=== PATIENT | male | born 1980 | race Caucasian/White ===

== ENCOUNTER → 2017-04-03 | Outpatient (CLI) | payer BC ==
--- NOTE | 2017-04-04 02:43 | REP ---
Clinical: Chest pain . Comparison: None . Technique: PA and lateral. Findings: The mediastinum and cardiac silhouette are normal. The lung banda are clear and without acute consolidation, effusion, or pneumothorax. The skeletal structures are intact and normal. Impression: 1. No acute cardiopulmonary process. Signed by Deepak Saunders MD 04/04/2017 02:35 A
== END ==
LOC: M CLY 14:44
PROVIDERS: ATTEND Family Medicine
DX: R07.9 Chest pain, unspecified (principal)

== ENCOUNTER → 2018-10-21 | Outpatient (CLI) | payer BC | LOC: M SMT 14:41 | DX: R06.02 Shortness of breath (principal) | CPT/HCPCS: 71046 ==

== ENCOUNTER → 2019-12-28 | Outpatient (CLI) | payer BC ==
[2019-12-28 20:40] LABS: ALBUMIN 4.2 GM/DL (3.2-5.2); ALT/SGPT 34 U/L (12-78); AMYLASE 74 U/L (25-115); BILIRUBIN,TOTAL 0.3 MG/DL (0.2-1.0); BLOOD UREA NITROGEN 13 MG/DL (7-18); CALCIUM LEVEL 9.2 MG/DL (8.5-10.1); CARBON DIOXIDE LEVEL 29 MEQ/L (21-32); CHLORIDE LEVEL 103 MEQ/L (98-107); GLOMERULAR FILTRATION RATE > 60.0 (>60); GLUCOSE, FASTING 99 MG/DL (70-100); LIPASE 136 U/L (73-393); POTASSIUM SERUM 4.3 MEQ/L (3.5-5.1); SODIUM LEVEL 138 MEQ/L (136-145); TOTAL PROTEIN 7.4 GM/DL (6.4-8.2)
[2019-12-28 20:48] LABS: BASO # 0.1 10^3/uL (0.0-0.2); BASO % 0.5 % (0.0-1.0); EOS # 0.5 10^3/uL (0.0-0.5); EOS % 5.4 % (0.0-3.0); HEMATOCRIT 45.6 % (42.0-52.0); HEMOGLOBIN 14.7 g/dl (13.5-17.5); LYMPH # 3.4 10^3/uL (1.5-5.0); LYMPH % 34.9 % (24.0-44.0); MEAN CORPUSCULAR HEMOGLOBIN 29.4 pg (27.0-33.0); MEAN CORPUSCULAR HGB CONC 32.2 g/dl (32.0-36.5); MEAN CORPUSCULAR VOLUME 91.2 fl (80.0-96.0); MONO # 1.1 10^3/uL (0.0-0.8); NEUTROPHILS # 4.7 10^3/uL (1.5-8.5); NEUTROPHILS % 47.8 % (36.0-66.0); PLATELET COUNT, AUTOMATED 319 10^3/uL (150-450); WHITE BLOOD COUNT 9.8 10^3/uL (4.0-10.0)
--- NOTE | 2019-12-29 02:16 | REP ---
Clinical: Left lower quadrant abdominal pain. Technique: Upright view of the chest with supine and upright views of the abdomen and pelvis. Findings: Frontal upright view of the chest demonstrates no acute cardiopulmonary process or free air below the diaphragm to suspect pneumoperitoneum. Supine and upright views of the abdomen and pelvis demonstrate nonspecific bowel gas pattern without obstruction or perforation. No organomegaly. No abnormal calcifications. Skeletal structures normal for age. Impression: Nonspecific bowel gas pattern. Electronically Signed by Deepak Saunders MD 12/29/2019 02:08 A
== END ==
LOC: M WUC 17:06
PROVIDERS: ATTEND Physician Assistant
DX: R10.814 Left lower quadrant abdominal tenderness (principal)

== ENCOUNTER 2025-08-03 14:29 | Emergency (ER) | payer BC ==
[~2025-08-03] VITALS: Ht 189.2 cm; Wt 115.9 kg
[2025-08-03 15:17] LABS: BASO # 0.1 10^3/uL (0.0-0.2); BASO % 0.7 % (0.0-1.0); EOS # 0.3 10^3/uL (0.0-0.5); EOS % 3.5 % (0.0-3.0); LYMPH # 1.7 10^3/uL (1.5-5.0); LYMPH % 20.3 % (24.0-44.0); MONO # 0.8 10^3/uL (0.0-0.8); MONO % 9.6 % (2.0-8.0); NEUTROPHILS # 5.4 10^3/uL (1.5-8.5); NEUTROPHILS % 65.7 % (36.0-66.0); PLATELET COUNT, AUTOMATED 272 10^3/uL (150-450)
[2025-08-03 15:24] LABS: CPK CREATINE PHOSPHOKINASE 59 U/L (46-171)
[2025-08-03 15:25] LABS: ALT/SGPT 26 U/L (7.0-40); AST/SGOT 16 U/L (<34); CALCIUM LEVEL 9.4 MG/DL (8.5-10.1); CARBON DIOXIDE LEVEL 28 MMOL/L (20-31); CHLORIDE LEVEL 104 MMOL/L (98-107); CK-MB VALUE MASS 1.0 NG/ML (<3.6); CREATININE FOR GFR 0.97 MG/DL (0.70-1.30); GLOMERULAR FILTRATION RATE > 90.0 (>60); MB/CK RELATIVE INDEX 1.69 (< OR =4); POTASSIUM SERUM 4.1 MMOL/L (3.5-5.1); SODIUM LEVEL 141 MMOL/L (136-145)
[2025-08-03] MEDS: SUCRALFATE SUSP 1GM/10ML UD PO ONE (16:03)
[2025-08-03 16:29] LABS: CK-MB VALUE MASS 1.0 NG/ML (<3.6)
[2025-08-03 16:30] LABS: CPK CREATINE PHOSPHOKINASE 61 U/L (46-171); MB/CK RELATIVE INDEX 1.63 (< OR =4)
[2025-08-03] MEDS ORDERED: CARA1TAB6 PO (17:28)
[2025-08-03 17:48] VITALS: BP 135/77; O2SAT 97
[2025-08-03 17:51] VITALS: TEMP 98.3
== END 2025-08-03 18:04 | disposition home or self-care (01) ==
LOC: EDBD 14:29 → M ED 15:52
DX: R10.13 Epigastric pain (principal); I10 Essential (primary) hypertension; K21.9 Gastro-esophageal reflux disease without esophagitis

== ENCOUNTER 2025-08-19 21:00 | Emergency (ER) | payer OTHER, BC ==
[~2025-08-19] VITALS: Ht 188 cm; Wt 113.5 kg
[~2025-08-19 21:00] MED LIST: CARA1TAB6 PO
[2025-08-19 21:43] LABS: BASO # 0.0 10^3/uL (0.0-0.2); BASO % 0.5 % (0.0-1.0); EOS # 0.4 10^3/uL (0.0-0.5); EOS % 4.1 % (0.0-3.0); LYMPH # 2.3 10^3/uL (1.5-5.0); LYMPH % 26.4 % (24.0-44.0); MONO # 1.0 10^3/uL (0.0-0.8); MONO % 11.7 % (2.0-8.0); NEUTROPHILS # 5.0 10^3/uL (1.5-8.5); NEUTROPHILS % 57.1 % (36.0-66.0); PLATELET COUNT, AUTOMATED 293 10^3/uL (150-450)
[2025-08-19 22:02] LABS: CK-MB VALUE MASS 1.2 NG/ML (<3.6)
[2025-08-19 22:05] LABS: ALT/SGPT 24 U/L (7.0-40); AST/SGOT 16 U/L (<34); CALCIUM LEVEL 8.9 MG/DL (8.5-10.1); CARBON DIOXIDE LEVEL 28 MMOL/L (20-31); CHLORIDE LEVEL 105 MMOL/L (98-107); CREATININE FOR GFR 0.89 MG/DL (0.70-1.30); GLOMERULAR FILTRATION RATE > 90.0 (>60); POTASSIUM SERUM 3.9 MMOL/L (3.5-5.1); SODIUM LEVEL 139 MMOL/L (136-145)
[2025-08-19 22:08] LABS: CPK CREATINE PHOSPHOKINASE 80 U/L (46-171); MB/CK RELATIVE INDEX 1.50 (< OR =4)
[2025-08-19] MEDS ORDERED: ISOVUE-370 76% 100 ML VIAL As Ordered ONE (22:53)
[2025-08-19 23:45] LABS: CK-MB VALUE MASS 1.3 NG/ML (<3.6); MAGNESIUM LEVEL 1.8 MG/DL (1.8-2.4)
[2025-08-19 23:52] LABS: CPK CREATINE PHOSPHOKINASE 78.0 U/L (46-171); MB/CK RELATIVE INDEX 1.66 (< OR =4)
[2025-08-20] MEDS ORDERED: ATIV1TAB10 PO (02:34)
[2025-08-20] MEDS: TAMSULOSIN 0.4 MG CAP PO ONE (02:58)
[2025-08-20 03:00] VITALS: BP 128/74; TEMP 97.9; O2SAT 97
== END 2025-08-20 03:05 | disposition home or self-care (01) ==
LOC: M ED 21:00
DX: F41.0 Panic disorder [episodic paroxysmal anxiety] (principal); I10 Essential (primary) hypertension; K21.9 Gastro-esophageal reflux disease without esophagitis; N40.0 Benign prostatic hyperplasia without lower urinary tract symptoms; F17.290 Nicotine dependence, other tobacco product, uncomplicated; Z79.899 Other long term (current) drug therapy; Z88.2 Allergy status to sulfonamides
CPT/HCPCS: 71045; 71275; 80048; 80076; 82550; 82553; 83690; 83735; 84443; 84484; 85025; 93005; 93041; 94760; 96374; 99285; J2060; Q9967

== ENCOUNTER 2025-09-12 17:16 | Emergency (ER) | payer BC, OTHER ==
[~2025-09-12] VITALS: Ht 188 cm; Wt 112.0 kg
[~2025-09-12 17:16] MED LIST changes: +ATIV1TAB10 PO
[2025-09-12 17:19] VITALS: TEMP 97.8
[2025-09-12] MEDS ORDERED: FLUT1BLS16 (17:26)
[2025-09-12] MEDS ORDERED: METO1TAB7 (17:26)
[2025-09-12] MEDS ORDERED: TAMS1CAP17 (17:26)
[2025-09-12 18:22] LABS: BASO # 0.0 10^3/uL (0.0-0.2); BASO % 0.4 % (0.0-1.0); EOS # 0.3 10^3/uL (0.0-0.5); EOS % 3.0 % (0.0-3.0); LYMPH # 2.2 10^3/uL (1.5-5.0); LYMPH % 23.2 % (24.0-44.0); MONO # 1.2 10^3/uL (0.0-0.8); MONO % 12.3 % (2.0-8.0); NEUTROPHILS # 5.8 10^3/uL (1.5-8.5); NEUTROPHILS % 61.0 % (36.0-66.0); PLATELET COUNT, AUTOMATED 326 10^3/uL (150-450)
[2025-09-12 18:34] LABS: INR 0.87
[2025-09-12 18:43] LABS: ALT/SGPT 22 U/L (7.0-40); AST/SGOT 17 U/L (<34); CALCIUM LEVEL 9.4 MG/DL (8.5-10.1); CARBON DIOXIDE LEVEL 26 MMOL/L (20-31); CHLORIDE LEVEL 101 MMOL/L (98-107); CK-MB VALUE MASS < 1.0 NG/ML (<3.6); CREATININE FOR GFR 0.81 MG/DL (0.70-1.30); GLOMERULAR FILTRATION RATE > 90.0 (>60); POTASSIUM SERUM 4.1 MMOL/L (3.5-5.1); SODIUM LEVEL 139 MMOL/L (136-145)
[2025-09-12 18:46] LABS: CPK CREATINE PHOSPHOKINASE 77 U/L (46-171)
[2025-09-12 19:55] LABS: CK-MB VALUE MASS < 1.0 NG/ML (<3.6)
[2025-09-12 19:58] LABS: CPK CREATINE PHOSPHOKINASE 69 U/L (46-171)
[2025-09-12 20:07] LABS: MAGNESIUM LEVEL 1.7 MG/DL (1.8-2.4)
[2025-09-12 20:12] LABS: FREE T4 1.19 NG/DL (0.89-1.76)
[2025-09-12] MEDS: MAG SULF 1GM/100ML (MAG RUN) 1 GM in IV 1 EA IV ONE (20:27)
[2025-09-12] MEDS ORDERED: HOLTER MONITOR XX (21:08)
[2025-09-12 21:30] VITALS: BP 141/85; O2SAT 98
[2025-09-12] MEDS: TAMSULOSIN 0.4 MG CAP PO ONE (21:35)
== END 2025-09-12 21:44 | disposition home or self-care (01) ==
LOC: M ED 17:16
DX: R00.2 Palpitations (principal); E83.42 Hypomagnesemia; I10 Essential (primary) hypertension; K21.9 Gastro-esophageal reflux disease without esophagitis; N40.0 Benign prostatic hyperplasia without lower urinary tract symptoms; J45.909 Unspecified asthma, uncomplicated; Z88.2 Allergy status to sulfonamides; Z79.899 Other long term (current) drug therapy
CPT/HCPCS: 71045; 80048; 80076; 82550; 82553; 83690; 83735; 84439; 84443; 84484; 85025; 85610; 85730; 93005; 93041; 94760; 96365; 99285; J3475

== ENCOUNTER → 2025-09-14 | Outpatient (CLI) | payer OTHER ==
[~2025-09-14] MED LIST changes: +BUSP1TAB PO; +FLUT1BLS16; +HOLTER MONITOR XX; +LISI40TA10 PO; +METO1TAB7; +OMEP40CA4 PO; +TAMS1CAP17; +VENTAER INH
== END ==
LOC: M EKG 10:07
PROVIDERS: ATTEND Emergency Medicine
DX: R00.2 Palpitations (principal)

== ENCOUNTER 2025-09-16 14:11 | Emergency (ER) | payer OTHER ==
[~2025-09-16] VITALS: Ht 188 cm; Wt 112.7 kg
[~2025-09-16 14:11] MED LIST changes: -BUSP1TAB PO; -LISI40TA10 PO; -OMEP40CA4 PO; -VENTAER INH
[2025-09-16 14:13] VITALS: TEMP 96.4
[2025-09-16] MEDS ORDERED: VENTAER INH (14:33)
[2025-09-16] MEDS ORDERED: LISI40TA10 PO (14:33)
[2025-09-16] MEDS ORDERED: OMEP40CA4 PO (14:33)
[2025-09-16 14:42] LABS: BASO # 0.0 10^3/uL (0.0-0.2); BASO % 0.3 % (0.0-1.0); EOS # 0.2 10^3/uL (0.0-0.5); EOS % 2.0 % (0.0-3.0); LYMPH # 2.2 10^3/uL (1.5-5.0); LYMPH % 19.9 % (24.0-44.0); MONO # 0.9 10^3/uL (0.0-0.8); MONO % 8.1 % (2.0-8.0); NEUTROPHILS # 7.6 10^3/uL (1.5-8.5); NEUTROPHILS % 69.3 % (36.0-66.0); PLATELET COUNT, AUTOMATED 324 10^3/uL (150-450)
[2025-09-16 15:10] LABS: ALT/SGPT 23 U/L (7.0-40); AST/SGOT 13 U/L (<34); CALCIUM LEVEL 9.5 MG/DL (8.5-10.1); CARBON DIOXIDE LEVEL 26 MMOL/L (20-31); CHLORIDE LEVEL 102 MMOL/L (98-107); CK-MB VALUE MASS < 1.0 NG/ML (<3.6); CREATININE FOR GFR 0.96 MG/DL (0.70-1.30); GLOMERULAR FILTRATION RATE > 90.0 (>60); MAGNESIUM LEVEL 1.7 MG/DL (1.8-2.4); POTASSIUM SERUM 4.2 MMOL/L (3.5-5.1); SODIUM LEVEL 139 MMOL/L (136-145)
[2025-09-16 15:11] LABS: CPK CREATINE PHOSPHOKINASE 64 U/L (46-171)
[2025-09-16 16:15] VITALS: BP 142/75; O2SAT 97
[2025-09-16] MEDS ORDERED: BUSP1TAB PO (16:17)
== END 2025-09-16 16:45 | disposition home or self-care (01) ==
LOC: M ED 14:11
DX: R07.89 Other chest pain (principal); R00.2 Palpitations; F41.1 Generalized anxiety disorder; E83.42 Hypomagnesemia; I10 Essential (primary) hypertension; F32.A Depression, unspecified; K21.9 Gastro-esophageal reflux disease without esophagitis; N40.0 Benign prostatic hyperplasia without lower urinary tract symptoms; Z87.891 Personal history of nicotine dependence; Z79.899 Other long term (current) drug therapy; Z88.2 Allergy status to sulfonamides

== ENCOUNTER → 2025-10-07 | Outpatient (CLI) | payer OTHER ==
[~2025-10-07] MED LIST changes: +BUSP1TAB PO; +LISI40TA10 PO; +OMEP40CA4 PO; +VENTAER INH
[2025-10-07 11:25] LABS: CHOLESTEROL LEVEL 218.0 MG/DL (<200); CHOLESTEROL RISK RATIO 3.54 (<5); LDL CHOLESTEROL 137.3 MG/DL (<100); MAGNESIUM LEVEL 1.9 MG/DL (1.8-2.4); NON-HDL-C 156.5 MG/DL; TRIGLYCERIDES LEVEL 96.0 MG/DL (<150)
[2025-10-07 11:26] LABS: FREE T4 1.14 NG/DL (0.89-1.76)
== END ==
LOC: M CARPUL 09:49
PROVIDERS: ATTEND Nurse Practitioner Family
DX: R00.2 Palpitations (principal); E78.2 Mixed hyperlipidemia; R07.9 Chest pain, unspecified; I34.0 Nonrheumatic mitral (valve) insufficiency